=== PATIENT | female | born 1995 | race Caucasian/White ===

== ENCOUNTER 2021-02-24 17:55 | Emergency (ER) | payer MEDICAID ==
[2021-02-24 18:59] LABS: #Neutrophils 9.8 10x3/uL (1.5-8.4); %Basophils 0.2 % (0.0-2.0); %Eosinophils 0.2 % (0.0-6.0); %Lymphocytes 11.6 % (18.0-47.0); %Neutrophils 79.5 % (40.0-75.0); Bilirubin Neg (Negative); Blood, Urine 10 (Negative); Clarity Clear (Clear); Glucose, Urine (Dipstick) Normal (Negative); Hemoglobin 13.4 g/dL (12.0-15.5); Ketone, Urine 15 mg/dL (Negative); Leukocyte 500 (Negative); Mean Corpuscular HGB CONC 33.6 g/dL (32.0-36.0); Mean Corpuscular Hemoglobin 32.4 pg (27.0-33.0); Mean Corpuscular Volume 96.6 fl (81.6-98.3); Mean Platelet Volume 9.7 fl (7.4-10.4); Nitrite Positive (Negative); Platelet Count 228 10x3/uL (150-450); Protein, Urine (Dipstick) 30 mg/dl (Neg-Trace); RBC Distribution Width 12.4 % (11.5-14.5); Red Blood Cell (RBC) Count 4.13 10x6/uL (3.90-5.03); White Blood Cell (WBC) Count 12.3 10x3/uL (3.5-10.5); pH, Urine 6.5 (5.0-9.0)
[2021-02-24 19:08] LABS: Pregnancy Test - Urine (BHCG) Negative (Negative); Pregu Control Background? CLEAR/WHITE (CLR/WHITE); Pregu Control Bar Appear? YES (CONTROL BAR)
[2021-02-24 19:10] LABS: RBC/HPF 0-3 HPF (0-3); Squamous Epithelial 0-3 HPF (0-3)
[2021-02-24 19:11] LABS: Bacteria/HPF 4+ HPF (None Seen); Mucous/LPF 2+ LPF (<2+)
[2021-02-24 19:12] LABS: ALT (SGPT) 14 U/L (8-55); AST (SGOT) 16 U/L (5-34); Albumin 4.3 g/dL (3.5-5.0); Alkaline Phosphatase 72 U/L (40-110); Anion Gap 16 mmol/L (10-20); BUN (Urea Nitrogen) 9 mg/dL (7.0-18.7); Calc. Creatinine Clearance 0 mL/min (70-130); Calcium 9.4 mg/dL (7.8-10.44); Carbon Dioxide 23 mmol/L (22-29); Chloride 101 mmol/L (98-107); Glucose 85 mg/dL (70-105); Potassium 3.6 mmol/L (3.5-5.1); Protein, Total 7.3 g/dL (6.0-8.3); Sodium 136 mmol/L (136-145)
[2021-02-24] MEDS ORDERED: Acetaminophen 500 MG TAB ONE (19:24)
[2021-02-24] MEDS ORDERED: Ketorolac Tromethamine 15 MG/ML VIAL ONE (19:24)
[2021-02-24 19:30] LABS: Lipase Less than 4 U/L (8-78)
[2021-02-24] MEDS ORDERED: cefTRIAXone\\ROCEPHIN 1 GM VIAL ONE (19:36)
== END 2021-02-24 20:23 | disposition home or self-care (01) ==
LOC: CSHERS 17:55
DX: N12 Tubulo-interstitial nephritis, not specified as acute or chronic (principal)
CPT/HCPCS: 74177; 80053; 81003; 81015; 81025; 83690; 85025; 87077; 87086; 87186; 96365; 96375; J0696; J1885